=== PATIENT | female | born 1980 | race Caucasian/White ===

== ENCOUNTER 2019-08-15 06:24 | Observation (INO) | payer OTHER ==
[~2019-08-15] VITALS: Ht 180.3 cm; Wt 77.2 kg
[2019-08-15 06:56] LABS: MICROSCOPIC INDICATED
[2019-08-15] MEDS ORDERED: ONDANSETRON 2MG/ML, 2ML ONE (07:19)
[2019-08-15] MEDS ORDERED: PLEASE ENTER ALLERGIES MC SCH (07:30)
[2019-08-15] MEDS ORDERED: ONDANSETRON 2MG/ML, 2ML IVPush PRN (07:30)
[2019-08-15] MEDS ORDERED: LACTATED RINGERS 1,000 ML IVBOLUS ONE (07:30)
[2019-08-15] MEDS ORDERED: PLEASE ENTER HEIGHT AND WEIGHT MC SCH (07:30)
[2019-08-15] MEDS ORDERED: FENTANYL PF 100 MCG/2ML ONE (07:43)
[2019-08-15] MEDS ORDERED: TERBUTALINE 1 MG/ML, 1ML ONE (08:00)
[2019-08-15] MEDS ORDERED: FENTANYL PF 100 MCG/2ML IVPush ONE (08:00)
[2019-08-15 08:23] VITALS: BP 128/77
[2019-08-15] MEDS: LACTATED RINGERS 1,000 ML IV SCH ×2 (08:24→11:06)
[2019-08-15] MEDS ORDERED: METOCLOPRAMIDE 5 MG/ML, 2ML ONE (08:36)
[2019-08-15 08:51] LABS: BASOPHILS # (AUTO) 0.03 x10^3/uL (0-0.1); BASOPHILS % (AUTO) 0 % (0-1); EOSINOPHILS % (AUTO) 0 % (1-7); LYMPHOCYTES % (AUTO) 8 % (22-44); MD NO; MEAN CORPUSCULAR HEMOGLOBIN 31.5 pg (27.0-34.8); MEAN CORPUSCULAR HGB CONC 33.2 g/dL (32.4-35.8); MEAN CORPUSCULAR VOLUME 94.9 fL (80-100); MEAN PLATELET VOLUME 7.9 fL (7.4-10.4); MONOCYTES # (AUTO) 0.53 x10^3/uL (0.2-0.8); MONOCYTES % (AUTO) 3 % (2-9); NEUTROPHILS % (AUTO) 89 % (42-75); PLATELET COUNT 277 x10^3/uL (130-400); RED BLOOD COUNT 4.31 x10^6/uL (3.82-5.3); RED CELL DISTRIBUTION WIDTH 14.5 % (9.6-15.2)
[2019-08-15] MEDS ORDERED: METOCLOPRAMIDE 5 MG/ML, 2ML IVPush ONE (09:00)
[2019-08-15] MEDS ORDERED: TERBUTALINE 1 MG/ML, 1ML SQ ONE ×2 (09:00)
[2019-08-15 09:04] LABS: ALANINE AMINOTRANSFERASE 23 U/L (12-78); ALBUMIN 2.6 g/dL (3.4-5.0); ANION GAP 10 mmol/L (5-15); CALCIUM 8.4 mg/dL (8.5-10.1); CHLORIDE 109 mmol/L (98-107); CREATININE 0.76 mg/dL (0.55-1.02)
[2019-08-15] MEDS ORDERED: MORPHINE SULFATE 4 MG/ML, 1ML ONE ×3 (09:05→12:24)
[2019-08-15 09:06] LABS: ALKALINE PHOSPHATASE 81 U/L (45-117); BILIRUBIN,TOTAL 0.3 mg/dL (0.2-1.0)
[2019-08-15] MEDS: MORPHINE SULFATE 4 MG/ML, 1ML IVPush PRN ×2 (09:07→11:03)
[2019-08-15 09:26] LABS: AMPHETAMINE SCREEN, URINE Negative (Negative); BARBITURATE SCREEN, URINE Negative (Negative); BENZODIAZEPINE SCREEN, URINE Negative (Negative); CANNABINOID SCREEN, URINE Negative (Negative); COCAINE SCREEN, URINE Negative (Negative); METHADONE SCREEN, URINE Negative (Negative); OPIATE SCREEN, URINE Negative (Negative)
[2019-08-15] MEDS ORDERED: morphine SULFATE 10 MG/ML, 1ML IVPush PRN (11:00)
[2019-08-15] MEDS ORDERED: PREN1TAB60 PO (11:54)
[2019-08-15] MEDS ORDERED: MORPHINE SULFATE 4 MG/ML, 1ML IVPush PRN (12:30)
== END 2019-08-15 15:00 | disposition home or self-care (01) ==
LOC: LDOP 06:24 → LDIP 08:17
PROVIDERS: ADMIT Student in an Organized Health Care Education/Training Program; ATTEND Student in an Organized Health Care Education/Training Program
DX: O26.892 Other specified pregnancy related conditions, second trimester (principal); R10.31 Right lower quadrant pain; Z3A.24 24 weeks gestation of pregnancy; Z79.899 Other long term (current) drug therapy
CPT/HCPCS: 74181; 76700; 76815; 80053; 80307; 81001; 85025; 87086; 96361; 96372; 96374; 96375; 96376; 99201; G0378; J2270; J2405; J2765; J3010; J3105; J7120; G0463